=== PATIENT | female | born 1975 | race Caucasian/White ===

== ENCOUNTER 2019-11-30 02:11 | Inpatient (IN) | payer MEDICARE, MEDICAID, SELFPAY ==
[2019-11-30] VITALS (8 sets, daily range): BP systolic 129–150; BP diastolic 76–100; PULSE 71–89; RESP 16–21; TEMP 36.5–37.2; O2SAT 96–100; BMI 50.6
--- NOTE | 2019-11-30 02:17 | ED_ITS ---
HPI - Psych General: Chief Complaint: Psychiatric Symptoms Stated Complaint: Psych Transfer Time Seen by Provider: 11/30/19 02:14 Source: patient and EMS Mode of arrival: EMS Limitations: no limitations History of Present Illness: HPI Narrative: 4-year-old female who is here from [facility] as a psychiatric admission. Patient stop by the ER for screening. She states she had been suicidal for the last week. She voluntarily wants to be admitted. She denies any cough or fever and denies any COVID contact. Associated symptoms: Reports depression and suicidal ideation Review of Systems Const: Denies: fever(s), chills, body aches or change in appetite Eyes: Denies: blurry vision or eye discomfort ENMT: Denies: throat pain or dental pain Card: Denies: chest pain Resp: Denies: dyspnea GI: Denies: abdominal pain, nausea, vomiting or diarrhea : Denies: dysuria Musc: Denies: neck pain or back pain Skin/Breast: Denies: rash Neuro: Denies: headache(s) Psych: Reports: depression and suicidal ideation Simone/Lymph: Denies: easy bruising All/Imm: Denies: urticaria Physical Exam Const: COMMON NORMALS: no acute distress, patient oriented x3 and healthy appearing HENMT: COMMON NORMALS: normocephalic and atraumatic HEAD & SCALP: normocephalic and atraumatic Eye: COMMON NORMALS: Equal, round and reactive pupils present and EOMs intact bilaterally PUPIL: Yes Equal, round and reactive pupils present Neck/C-Spine: COMMON NORMALS: full ROM and supple Chest: COMMONS NORMALS: normal inspection of the chest and normal palpation of entire chest wall Resp: COMMON NORMALS: normal respiratory effort, No retractions, No use of accessory muscles and clear to auscultation bilaterally AUSCULTATION: clear to auscultation bilaterally Cardio: COMMON NORMALS: regular rate, regular rhythm and No murmurs present (Cardio) RATE: regular rate RHYTHM: regular rhythm GI: COMMON NORMALS: Normal to inspection, nondistended, normoactive bowel sounds present, Soft to palpation, non-tender and no masses PALPATION: Yes Soft to palpation Extremity: COMMON NORMALS: normal to inspection and full ROM Neuro: COMMON NORMALS: patient oriented x3, moves all extremities and no focal motor deficits Psych: COMMON NORMALS: mental status grossly normal, Normal thought process present and cooperative THOUGHT PROCESS: Normal thought process present Skin: COMMON NORMALS: no rashes or lesions noted and no wounds GENERAL SKIN EXAM: no rashes or lesions noted MDM - Psych MDM Narrative: Medical decision making narrative: Patient presents for suicidality. She has no COVID symptoms. Patient is stable for admission to the MPU Discharge Plan Discharge Patient Disposition: Admitted As Inpatient Clinical Impression: Suicidal ideation Condition: Stable Coding Level of Care Code ED Director Insurance for Jeremie Engel
[2019-11-30] MEDS: hyDROXYzine 25 mg Capsule 50 MG PO ×2 (04:45→20:25)
[2019-11-30] MEDS: OLANZapine 5 mg ODT PO (04:45)
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
[2019-11-30] MEDS: trazodone 50 mg Tablet PO (20:25)
--- NOTE | 2019-11-30 22:44 | PC.NURSE ---
ON ASSESSMENT BILATERAL LUNG SOUNDS ARE CLEAR THROUGHOUT, HEART SOUNDS NORMAL S1 & S2 WITHOUT MURMUR, BOWEL SOUNDS ARE PRESENT IN ALL FOUR QUADRANTS. pATIENT HAS BEEN IN THE DAYROOM OR ON THE PHONE MOST OF THE EVENING. PATIENT NEEDS TO USE A CPAP FOR SLEEP AND HAS BEEN ACCOMPANIED BY THE 1:1 [facility]TER[facility], THIS EVENING. PT IS IS RESTING IN HER ROOM WITHOUT ANY APPARENT DISTRESS AT THIS TIME.
[2019-12-01 06:00] VITALS: BP 131/84; PULSE 76; RESP 18; TEMP 36.6; O2SAT 100
[2019-12-01] MEDS: lamoTRIgine 100 mg Tablet PO (13:08)
[2019-12-01] MEDS: naproxen 500 mg Tablet PO ×2 (13:08→17:24)
[2019-12-01] MEDS: venlafaxine ER (24HR) 75 mg Capsule 225 MG PO (13:08)
[2019-12-01] MEDS: benztropine 1 mg Tablet PO ×2 (13:09→17:24)
[2019-12-01] MEDS: haloperidol 5 mg Tablet 10 MG PO ×2 (13:09→17:24)
--- NOTE | 2019-12-01 13:24 | PM.NPN ---
Subjective NPU Subjective: Interval history: Angelica presents today able to verify her medications allowing us to restart them. We restarted the medication she has been put on for her rash. Identifying that it had been going on for longer than we understood. We discussed the risk benefits and alternatives of increasing her Lamictal evening dose and she understood and reported she wanted to hold on that for the moment. She also raises a question of increasing her Haldol which we agreed to evaluate. She reports that she is eating okay and sleeping a little better. Mental Status Exam MSE Comments: This is an obese, white female, with adequate dress, grooming, and eye contact. She has a rash that looks like it could be from flea bites that have been scratched, all over her face, torso, and legs. Additionally, she does have somewhat of a droop on her left side that might represent [place] Palsy or something. No abnormal movements, except for mild psychomotor retardation. Cooperative with exam in no acute distress. Speech was mostly normal rate and volume. Mood described as okay; affect slightly subdued. Thought process, organized. Thought content: patient denied any suicidal or homicidal ideation, there were no delusions reported or noted, patient denied any auditory or visual hallucinations. Attention, concentration, and memory appear intact but none were formally tested. She is alert and oriented times three. Insight and judgment are limited. Impulse control is limited. Vitals/I&O/Wt Last Vital Signs Temp 97.9 F 12/01/19 19:39 Pulse 85 12/01/19 20:50 Resp 15 12/01/19 19:39 BP 163/93 12/01/19 21:04 Pulse Ox 97 12/01/19 20:50 Weight last 48 hrs Weight 129.727 kg A&P Additional A&P Information (1) Schizoaffective disorder: (2) PTSD (post-traumatic stress disorder): (3) Anxiety: Additional A&P Information This is a 44 year old, white female, with a reported history of schizoaffective disorder, who presents reporting depression and anxiety, with a desire to have her medications adjusted. Continue current medications. We will consider some changes tomorrow. Encourage individual, group, and milieu therapy. Continue q-15 minute checks for safety. Involuntary Hold Information 96 Hour Hold: 96 Hour Involuntary Admission: No Attestations NPU Medical Necessity Statement*: Inpatient hospitalization is medically necessary and the clinically appropriate intervention, at this time. We will monitor medications and make changes as indicated. Likely length of stay is 3-5 days. Coding Level of Care Code Acute [employer] Interleafer for Jeremie Engel
[2019-12-01 14:00] VITALS: BP 140/80; PULSE 80; RESP 20; TEMP 37.6; O2SAT 97
[2019-12-01] MEDS: triamcinolone 0.1% cream 15 gm 1 APPLIC TOPICAL ×2 (15:28→17:24)
[2019-12-01] MEDS: verapamil ER 240 mg Tablet PO (15:29)
--- NOTE | 2019-12-01 16:45 | PC.RESP ---
Smoking Cessation information sent to patient.
[2019-12-01 19:39] VITALS: BP 168/93; PULSE 78; RESP 15; TEMP 36.6; O2SAT 95
[2019-12-01 20:50] VITALS: PULSE 85; RESP 17; O2SAT 97
[2019-12-01 21:04] VITALS: BP 163/93
[2019-12-01] MEDS: cloNIDine 0.1 mg Tablet PO (21:04)
[2019-12-01] MEDS: trazodone 50 mg Tablet PO (21:05)
[2019-12-01] MEDS: hyDROXYzine 25 mg Capsule 50 MG PO (21:06)
[2019-12-01] MEDS: lamoTRIgine 100 mg Tablet 50 MG PO (21:13)
--- NOTE | 2019-12-02 04:22 | PC.NURSE ---
Addendum entered by Ankita Ambrocio RN 12/02/19 04:24: She has been with a 1:1 sitter d/t use of cpap and slept all evening without waking. She did receive Trazodone to help her fall asleep which is effective for this patient. Original Note: Patient is pleasant and seems happy. She is ready to go home to her and cats. She says that she is feeling better and not as anxious. She denies SI tonight.
[2019-12-02 06:00] VITALS: BP 126/57; PULSE 81; RESP 17; TEMP 36.4; O2SAT 97
[2019-12-02] MEDS: naproxen 500 mg Tablet PO ×2 (09:52→17:11)
[2019-12-02] MEDS: haloperidol 5 mg Tablet 10 MG PO ×2 (09:53→17:11)
[2019-12-02] MEDS: benztropine 1 mg Tablet PO ×2 (09:53→17:11)
[2019-12-02] MEDS: verapamil ER 240 mg Tablet PO (09:53)
[2019-12-02] MEDS: lamoTRIgine 100 mg Tablet PO (09:53)
[2019-12-02] MEDS: venlafaxine ER (24HR) 75 mg Capsule 225 MG PO (09:53)
[2019-12-02] MEDS: chlorthalidone 25 mg Tablet PO (09:53)
[2019-12-02] MEDS: triamcinolone 0.1% cream 15 gm 1 APPLIC TOPICAL ×2 (09:55→17:11)
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
[2019-12-02 12:39] VITALS: BP 126/57; PULSE 81; RESP 17; TEMP 36.4; O2SAT 97
== END 2019-12-02 18:09 | disposition home or self-care (01) | DRG 885 ==
LOC: ER 02:35 → NP 02:39
PROVIDERS: Admitting Provider Psychiatry & Neurology Psychiatry; Visit Provider Psychiatry & Neurology Psychiatry
DX: F25.9 Schizoaffective disorder, unspecified (principal); R45.851 Suicidal ideations; Z68.43 Body mass index [BMI] 50.0-59.9, adult; F41.8 Other specified anxiety disorders; F17.210 Nicotine dependence, cigarettes, uncomplicated; F12.90 Cannabis use, unspecified, uncomplicated; M79.7 Fibromyalgia; E66.01 Morbid (severe) obesity due to excess calories; R21 Rash and other nonspecific skin eruption; F43.10 Post-traumatic stress disorder, unspecified
CPT/HCPCS: 12345; 94660; 99284